=== PATIENT | female | born 1995 | race Caucasian/White ===

== ENCOUNTER 2017-01-30 17:37 | Emergency (ER) | END 2017-01-30 22:52 | disposition home or self-care (01) ==

== ENCOUNTER 2017-03-05 16:26 | Emergency (ER) | END 2017-03-05 20:22 | disposition home or self-care (01) ==

== ENCOUNTER 2017-03-08 20:20 | Emergency (ER) | END 2017-03-09 00:53 | disposition home or self-care (01) ==

== ENCOUNTER 2017-04-01 21:25 | Emergency (ER) | END 2017-04-02 03:03 | disposition home or self-care (01) ==